=== PATIENT | male | born 1960 | race Caucasian/White ===

== ENCOUNTER 2020-03-20 11:00 | Inpatient (IN) ==
[2020-03-14 18:40] LABS: Blood Urea Nitrogen 17 mg/dL (6-20); Carbon Dioxide 24 mmol/L (22-30); Chloride 98 mmol/L (96-108); Glomerular Filtration Rate 94; Glucose 104 mg/dL (70-105)
[2020-03-14 18:45] LABS: Estimated Average Glucose(eAG) 100 mg/dL; Hemoglobin A1C 5.1 % Hgb (4.0-6.0); Partial Thromboplastin Time 35.9 sec (20.0-37.0)
[2020-03-14 18:59] LABS: INR 1.2 (0.9-1.1); Prothrombin Time 15.9 sec (11.9-14.5)
[2020-03-14 20:46] LABS: Appearance,Urine CLEAR (Clear); Bilirubin,Urine Negative (Negative); Color,Urine YELLOW; Culture Indicated,Urine No; Glucose,Urine (UA) Negative (Negative); Ketones,Urine Negative (Negative); Leukocyte Esterase,Urine Negative /ug (Negative); Nitrate,Urine Negative (Negative); Protein,Urine Negative (Negative); Specific Gravity,Urine 1.012 (1.000-1.035); Urine Blood Negative (Negative)
[2020-03-14 20:49] LABS: Basophils # (Auto) 0.07 K/mcL (0.00-0.20); Basophils % (Auto) 1.1 % (0.0-2.0); Eosinophils # (Auto) 0.21 K/mcL (0.00-0.70); Eosinophils % (Auto) 3.4 % (0.0-7.0); Hematocrit 42.3 % (41.0-55.0); Hemoglobin 14.4 g/dL (13.5-16.5); Lymphocytes # (Auto) 1.11 K/mcL (1.50-4.80); Lymphocytes % (Auto) 18.1 % (15.0-49.0); Mean Cell Volume 97.5 fL (80.0-100.0); Mean Platelet Volume 11.2 fL (7.4-10.4); Monocytes # (Auto) 0.89 K/mcL (0.10-0.90); Monocytes % (Auto) 14.5 % (1.0-12.0); Neutrophils % (Auto) 62.9 % (38.0-78.0); Platelet Count 79 K/mcL (140-440); RBC 4.34 M/mcL (4.50-5.90); Red Cell Distribution Width 16.6 % (11.5-14.5); WBC 6.1 K/mcL (4.5-11.0)
[~2020-03-20 11:00] MED LIST: ACETAMINOPHEN 500 MG TABLET PO SCH; CELECOXIB 200 MG CAPSULE PO SCH; IPRATROPIUM/ALBUTEROL 3 ML AMPUL.NEB NEB PRN; PREGABALIN 75 MG CAPSULE PO SCH; SCOPOLAMINE 1 PATCH PATCH TOPICAL PRN; ceFAZolin 3 GM in DEXTROSE 5% IN WATER 50 ML IV SCH; oxyCODONE 10 MG TAB.ER.12H PO SCH
[2020-03-20] MEDS ORDERED: MAGNESIUM HYDROXIDE 30 ML ORAL.SUSP PO PRN (13:47)
[2020-03-20] MEDS ORDERED: POLYETHYLENE GLYCOL 3350 17 GM PACKET PO PRN (13:47)
[2020-03-20] MEDS ORDERED: BENZOCAINE/MENTHOL 1 LOZENGE PO PRN ×2 (13:47→14:49)
[2020-03-20] MEDS ORDERED: TRANEXAMIC ACID 1,000 MG/10 ML VIAL IV SCH (13:47)
[2020-03-20] MEDS ORDERED: BISACODYL 10 MG SUPP.RECT PR PRN (13:47)
[2020-03-20] MEDS ORDERED: FLEETS ADULT ENEMA PR PRN (13:47)
[2020-03-20] MEDS ORDERED: HYDROmorphone 1 MG/ML SYRINGE IV PRN (13:47)
[2020-03-20] MEDS ORDERED: ONDANSETRON 4 MG/2 ML VIAL IV PRN ×2 (13:47→14:49)
[2020-03-20] MEDS ORDERED: TEMAZEPAM 15 MG CAPSULE PO PRN (13:47)
[2020-03-20] MEDS ORDERED: ACETAMINOPHEN 325 MG TABLET PO PRN (13:47)
--- NOTE | 2020-03-20 13:47 | Brief Operative Note ---
Brief Operative Note Date of procedure: 03/20/20 Pre-op diagnosis: Right shoulder rca and bicep tendonopathy Post-op diagnosis: same Procedure: Right reverse tsa and bicep tenodesis Grafts/Implants: Yes Anesthesia: ALEXYS Surgeon: Nikolay Neely Steamfitter: Lei Potts Estimated blood loss (cc): 100 Tourniquet Time (Minutes): 0 Specimens Removed/Pathology: none sent Condition: stable Disposition: PACU
[2020-03-20] MEDS ORDERED: GLYCOPYRROLATE 0.2 MG/ML VIAL IV ONE (13:48)
[2020-03-20] MEDS ORDERED: LIDOCAINE HCL/PF 100 MG/5 ML SYRINGE IV ONE (13:48)
[2020-03-20] MEDS ORDERED: PHENYLEPHRINE 10 MG/ML VIAL ONE (13:48)
[2020-03-20] MEDS ORDERED: DEXAMETHASONE 10 MG/ML VIAL ONE (13:48)
[2020-03-20] MEDS ORDERED: ROPIVACAINE HCL/PF 30 ML VIAL IJ ONE (13:48)
[2020-03-20] MEDS ORDERED: TRANEXAMIC ACID 1,000 MG/10 ML VIAL IV ONE (13:48)
[2020-03-20] MEDS ORDERED: fentaNYL 100 MCG/2 ML VIAL IV ONE (13:48)
[2020-03-20] MEDS ORDERED: ONDANSETRON 4 MG/2 ML VIAL ONE (13:48)
[2020-03-20] MEDS ORDERED: KETAMINE 100 MG/ML ML ONE (13:48)
[2020-03-20] MEDS ORDERED: ESMOLOL 100 MG/10 ML VIAL IV ONE (13:48)
[2020-03-20] MEDS ORDERED: MIDAZOLAM 2 MG/2 ML VIAL ONE (13:48)
[2020-03-20] MEDS ORDERED: PROPOFOL 200 MG/20 ML VIAL IV ONE (13:48)
[2020-03-20] MEDS ORDERED: CYCLOBENZAPRINE 10 MG TABLET PO PRN (13:57)
[2020-03-20] MEDS ORDERED: GENTAMICIN SULFATE 800 MG/20 ML VIAL IR ONE (14:20)
[2020-03-20] MEDS ORDERED: METHOCARBAMOL 1,000 MG/10 ML VIAL IV PRN (14:49)
[2020-03-20] MEDS ORDERED: MEPERIDINE 25 MG/ML SYRINGE IV PRN (14:49)
[2020-03-20] MEDS ORDERED: DIAZEPAM 10 MG/2 ML SYRINGE IV PRN (14:49)
[2020-03-20] MEDS ORDERED: IPRATROPIUM/ALBUTEROL 3 ML AMPUL.NEB NEB PRN (14:49)
[2020-03-20] MEDS ORDERED: LACTATED RINGERS 1,000 ML IV SCH (15:00)
--- NOTE | 2020-03-20 15:15 | Discharge Plan ---
Discharge Instructions - TSA Patient Instructions Total Shoulder Protocol: Leave immobilizer in place except for bathing and ROM. Abduction pillow. Continue to wear sling until seen by physician. Codman Pendulum : These exercises use momentum produced by your body to move your shoulder joint. Bend your knees and shift your weight to your front leg, then back, allowing your arm to swing in the same directions. Using the same technique, alternately shift your weight between your right and left legs, allowing your arm to swing from side to side. These exercises are also performed in counterclockwise and clockwise circular motions. Typically these exercises are performed several times per day, for a set number repetitions or minutes, such as 20 times in a row or 5 minutes at a time. Discharge Plan Patient/Caregiver Discharge Instructions Activity: as per physical therapy Diet: Regular Diet Prescriptions: New hydrocodone-acetaminophen 10-325 mg Tablet 1 - 2 tab PO Q4HP PRN (Reason: Pain Level 3-6) Qty: 75 RF: 0 docusate sodium 100 mg Capsule 100 mg PO BID Qty: 60 RF: 0 No Action tamsulosin 0.4 MG capsule 0.8 mg PO DAILY RF: 0 loratadine 10 MG tablet 10 mg PO DAILY RF: 0 metformin 1,000 MG tablet 850 mg PO BID RF: 0 cyclobenzaprine 10 mg Tablet 10 mg PO TID PRN (Reason: Muscle Spasm) RF: 0 potassium chloride 10 mEq Capsule, Extended Release 10 meq PO QDAY RF: 0 magnesium oxide 420 mg Tablet 420 mg PO QDAY RF: 0 trazodone 50 mg Tablet 50 mg PO QHS RF: 0 ibuprofen 800 mg Tablet 800 mg PO Q8H PRN (Reason: Pain) RF: 0 diltiazem HCl 120 mg Capsule,Extended Release 24 Hr 120 mg PO QDAY RF: 0 furosemide 20 mg Tablet 20 mg PO QDAY RF: 0 hydrocodone-acetaminophen [Vicodin HP] 10-300 mg Tablet 1 tab PO Q8H PRN (Reason: Pain) RF: 0 Eliquis 5 mg Tablet 5 mg PO BID RF: 0 Other Ambulatory Orders: Brace/Splint (ONCE) Location: None Selected Ordered By: Lei Potts Physical Therapy DC - TSA (Routine) Location: None Selected Ordered By: Lei Potts Follow Up Plan Follow up with: Lei Potts PA-C [Physician Cosmetology Instructor] - 04/06/20 2:20 pm Patient Disposition: Home, Self-Care Prognosis: Good Rehab Potential: Good I certify that the patient requires SNF services: No Overall status at discharge: patient is progressing back to baseline Discharge Orders: Discharge Order (Routine); Ordered 03/21/20 Ordered By: Lei Potts
[2020-03-20] MEDS: fentaNYL 100 MCG/2 ML VIAL IV PRN ×4 (15:30→15:38)
[2020-03-20] MEDS: KETOROLAC 15 MG/ML VIAL IV PRN ×2 (15:43→23:37)
[2020-03-20] MEDS: HYDROmorphone 0.5 MG/0.5 ML SYRINGE IV PRN ×2 (15:45→16:02)
[2020-03-20] MEDS ORDERED: HYDROmorphone 0.5 MG/0.5 ML SYRINGE ONE (15:52)
--- NOTE | 2020-03-20 16:12 | XRay Report ---
CLINICAL INFORMATION: Post-OP Total Shoulder COMPARISON: None. FINDINGS: Total shoulder prostheses is anatomically aligned. No osseous abnormality. Periarticular gas is soft tissue swelling seen as expected. IMPRESSION: Negative Interpreted and Authenticated by: Israel Mary 03/20/20
[2020-03-20] MEDS: HYDROcodone/APAP 10/325MG TABLET PO PRN ×2 (16:49→21:24)
[2020-03-20] MEDS: LACTATED RINGERS 1,000 ML IV SCH (16:51)
[2020-03-20] MEDS: 0.9 % SODIUM CHLORIDE 10 ML SYRINGE IV SCH ×2 (16:51→21:25)
[2020-03-20] MEDS: metFORMIN 850 MG TABLET PO SCH (17:44)
[2020-03-20] MEDS ORDERED: SENNOSIDES 1 TABLET PO SCH (21:00)
[2020-03-20] MEDS ORDERED: traZODone HCL 50 MG TABLET PO SCH (21:00)
[2020-03-20] MEDS: ceFAZolin 1 GM VIAL IV SCH (21:24)
[2020-03-20] MEDS: DOCUSATE SODIUM 100 MG CAPSULE PO SCH (21:25)
[2020-03-21] MEDS: LACTATED RINGERS 1,000 ML IV SCH (00:23)
[2020-03-21] MEDS: HYDROcodone/APAP 10/325MG TABLET PO PRN ×2 (01:26→06:46)
[2020-03-21] MEDS: ceFAZolin 1 GM VIAL IV SCH (05:11)
[2020-03-21] MEDS: 0.9 % SODIUM CHLORIDE 10 ML SYRINGE IV SCH (05:11)
--- NOTE | 2020-03-21 07:34 | Orthopedic Progress Note ---
SUBJECTIVE Subjective Patient information: Note initiated : 03/21/20 at 7:33 am Service Date, if different from initiated Date: [] Patient: Ilan Rothman 59 y/o M admitted on 03/20/20 for Right Reverse Total Shoulder Arthroplasty with. Chief Complaint: [Pt is stable this morning on post operative day without any significant concerns or complaints. Patients vital signs have remained stable. Patients dressing is dry and is grossly intact from a neurovascular and motor standpoint. Patients 10 point ROS is otherwise negative. ] Constitutional Vitals: Vital Signs Temp Pulse Resp BP Pulse Ox 97.7 F 97 H 18 160/85 91 03/21/20 03:51 03/21/20 03:51 03/21/20 03:51 03/21/20 03:51 03/21/20 03:51 Period Temp Pulse Resp BP Sys/Monte Pulse Ox Last 24 Hr 97.7 F-99.2 F 91-111 12-22 121-160/58-90 90-99 Intake and Output 03/20/20 03/21/20 03/21/20 21:59 05:59 13:59 Intake Total 2440 990 Output Total 385 450 Balance 2055 540 Weight 328 lb 9.6 oz Intake & Output: Intake & Output 03/20/20 03/21/20 03/21/20 21:59 05:59 13:59 Intake Total 2440 990 Output Total 385 450 Balance 2055 540 Weight 328 lb 9.6 oz Intake: IV 50 Ancef 3 gm In Dextrose 5% in 50 Water 50 ml @ 100 mls/hr IV PREOP JERAMIE Rx#:[id number] Oral 840 940 IV - Manual Only 1600 Output: Void Amount 300 450 Estimated Blood Loss 85 Other: Meal snack Soup, crackers Percent of Meal Consumed 100% 100% Feeding Ability Independent Urine Appearance Clear Clear Urine Color Dark Yellow Bright Yellow Urine Odor Normal Extremities Exam Extremities exam: Present normal capillary refill, normal inspection, Foot pink and warm and neurovascular intact OBJ DATA Labs CBC & Chem 7: 03/14/20 14:07 03/14/20 14:07 Meds: Medications Acetaminophen (Tylenol) 650 mg PO Q6HP PRN PRN Reason: PAIN/FEVER > 101 Hydrocodone Bitart/Acetaminophen (Calera 10/325mg) 0 tab PO Q4HP PRN PRN Reason: PAIN LEVEL 3-6 Last Admin: 12/15/20 06:46 Dose: 2 tab Documented by: Bisacodyl (Dulcolax) 10 mg WI Q2-3DAYS PRN PRN Reason: Constipation Cyclobenzaprine HCl (Flexeril) 10 mg PO TIDP PRN PRN Reason: Muscle Spasm Diagnostic Test (Pha) (Accu-Chek) 1 each FS PRN PRN PRN Reason: Blood Sugar - High Last Admin: 03/20/20 21:30 Dose: 1 each Documented by: Diltiazem HCl (Cardizem Sr) 120 mg PO DAILY [facility] Docusate Sodium (Colace) 100 mg PO BID [facility] Last Admin: 03/20/20 21:25 Dose: 100 mg Documented by: Furosemide (Lasix) 20 mg PO QDAY [facility] Hydromorphone HCl (Dilaudid) 0 mg IV Q2HP PRN; Protocol PRN Reason: Per Pain Protocol Ketorolac Tromethamine (Toradol) 15 mg IV Q6HP PRN PRN Reason: Pain Stop: 03/22/20 13:47 Last Admin: 03/20/20 23:37 Dose: 15 mg Documented by: Loratadine (Claritin) 10 mg PO DAILY [facility] Magnesium Hydroxide (Milk Of Magnesia) 30 ml PO BIDP PRN PRN Reason: Constipation Magnesium Oxide (Magnesium Oxide) 400 mg PO DAILY [facility] Metformin HCl (Glucophage) 850 mg PO BIDCC [facility] Last Admin: 03/20/20 17:44 Dose: 850 mg Documented by: Ondansetron HCl (Zofran) 4 mg IV Q4HP PRN PRN Reason: Nausea And Vomiting Polyethylene Glycol (Miralax) 17 gm PO DAILYP PRN PRN Reason: Constipation Potassium Chloride (Kdur) 10 meq PO QAC [facility] Senna (Senokot) 2 tab PO HS [facility] Last Admin: 03/20/20 21:25 Dose: 2 tab Documented by: Sodium Biphosphate/Sodium Phosphate (Fleets Adult) 1 dose WI Q3-4DAYS PRN PRN Reason: Constipation Sodium Chloride (Saline Flush) 10 ml IV Q8 [facility] Last Admin: 03/21/20 05:11 Dose: 10 ml Documented by: Tamsulosin HCl (Flomax) 0.8 mg PO DAILY [facility] Throat Lozenges (Cepacol) 1 lozenge PO PRN PRN PRN Reason: Sore Throat Trazodone HCl (Desyrel) 50 mg PO QHS [facility] Last Admin: 03/20/20 21:24 Dose: 50 mg Documented by: A/P Narrative A/P Narrative: The patient has been educated regarding dressing care, Physical Therapy recommendations, home exercises, restrictions, and follow up appoi ntments. The patient has had all necessary DME prescribed. The patient has remained relatively stable during their hospital course. Time Spent With Patient Time: Total time spent is greater than 50% in coordination of care (as documented) at patient's floor/unit and/or counseling patient: Total time spent with greater than 50% in coordination of care (as documented) at patient's floor/unit and/or counseling patient:: less than 15 minutes
--- NOTE | 2020-03-21 07:50 | Operative Note ---
DATE OF OPERATION: 03/20/2020 PREOPERATIVE DIAGNOSES: Right shoulder rotator cuff arthropathy and biceps tendinopathy with subluxation. POSTOPERATIVE DIAGNOSES: Right shoulder rotator cuff arthropathy and biceps tendinopathy with subluxation. PROCEDURE: Right reverse total shoulder with biceps tenodesis. SURGEON: Nikolay Neely M.D. PROMOTION SPECIALIST: Lei Potts PA-C. This providers expertise and technical skill were required throughout the case. The JADYN assisted with preoperative coordination, intraoperative retraction, wound closure, and dressing and splint application, as well as postoperative documentation and care coordination. IMPLANTS: Leslie implants with a reverse total shoulder. ESTIMATED BLOOD LOSS: 100 mL. TOURNIQUET: None used. SPECIMENS SENT: None. CONDITION: Stable. DISPOSITION: To PACU. DESCRIPTION OF PROCEDURE: The patient was brought to the operating room, put to sleep with general LMA anesthesia. Once asleep, a timeout was performed confirming the operative site. Once done, we then placed Ioban over the skin and an anterior deltopectoral approach was performed. With an incision from the coracoid to the insertion site of the deltoid, we made a deltopectoral approach to the shoulder and retracted the cephalic vein laterally. We then released the subscap, at this point retracting the conjoined tendon medially, a Way retractor to hold the deltoid and then we released the inferior capsule. The humeral head was dislocated. There was no supraspinatus or infraspinatus--both these rotator cuff muscles have been torn. The biceps was very flattened and broad. This was released as well. I performed a biceps tenodesis with sutures through the pectoralis major as well as through the bony surface. Once this was sutured into place, we then proceeded with the neck cut on the humerus. This was cut at 130-degree inclination with 20 degrees of retroversion. We removed the bony fragments. The ball was then subluxed posteriorly and we performed a 360-degree capsular release as well as release of the labrum and the remnants of the biceps tendon intraarticularly. A pin was placed centrally in the glenoid. We reamed up to the size 40 until 50% of the inferior surface was bleeding and then placed the metaglene with a 36 mm central screw and then 3 peripheral screws measured 24, 32 and 32, all of which had excellent purchase. A 40 mm glenosphere was placed with 4 mm of eccentricity, 2 mm of offset, and was tapped onto the metaglene. Once done, we were able to then prepare the humeral side. This was reamed up to size 12. We broached up to size 12 and trialed the implant. The shoulder was a little tight, though it did reduce and had full range of motion. We then countersunk the stem about 2 more mm and this gave excellent tension on the ligaments and perfect stability. We irrigated thoroughly and implanted the final implant, which was a cemented humeral stem from [employer] with a small amount of antibiotic-impregnated cement distally for early fixation. We then placed a 4 mm poly with the trunnion onto the stem. This was tapped into place as well. This was reduced. We irrigated thoroughly and then closed the deltopectoral interval with 2-0 Vicryl and Stratafix for the subcutaneous layer and then an adhesive closure on the skin. Once this was done a Donjoy sling was fitted and given to the patient at the end of the case. RBH:lamar Job ID: [id number] Doc ID: [id number] Nikolay Neely MD
[2020-03-21] MEDS ORDERED: POTASSIUM CHLORIDE 10 MEQ TABLET PO SCH (08:00)
[2020-03-21] MEDS: DOCUSATE SODIUM 100 MG CAPSULE PO SCH (08:35)
[2020-03-21] MEDS: metFORMIN 850 MG TABLET PO SCH (08:35)
[2020-03-21] MEDS ORDERED: DILTIAZEM 120 MG CAP.XL.24H PO SCH (09:00)
[2020-03-21] MEDS ORDERED: TAMSULOSIN 0.4 MG CAPSULE PO SCH (09:00)
[2020-03-21] MEDS ORDERED: MAGNESIUM OXIDE 400 MG TABLET PO SCH (09:00)
[2020-03-21] MEDS ORDERED: FUROSEMIDE 20 MG TABLET PO SCH (09:00)
[2020-03-21] MEDS ORDERED: LORATADINE 10 MG TABLET PO SCH (09:00)
== END 2020-03-21 11:02 | disposition home or self-care (01) | DRG 483 ==
LOC: MEDSUR 11:00
PROVIDERS: ADMIT Orthopaedic Surgery; ATTEND Orthopaedic Surgery